=== PATIENT | male | born 1980 | race Two or more races ===

== ENCOUNTER 2022-04-11 13:10 | Emergency (ER) | payer OTHER, SELFPAY ==
[2022-04-11 13:58] VITALS: BP 130/78; PULSE 71; RESP 16; TEMP 36.7; O2SAT 99; BMI 34.7
--- NOTE | 2022-04-11 14:25 | CTR_ITS ---
PROCEDURE INFORMATION: Exam: CT Maxillofacial Without Contrast Exam date and time: 04/11/2022 2:39 PM Age: 41 years old Clinical indication: Injury or trauma; Other: Impact drill socket to forehead; Work related; Blunt trauma (contusions or hematomas) and laceration; Without residual foreign body; Additional info: Facial injury TECHNIQUE: Imaging protocol: Computed tomography images of the face without contrast. Radiation optimization: All CT scans at this facility use at least one of these dose optimization techniques: automated exposure control; mA and/or kV adjustment per patient size (includes targeted exams where dose is matched to clinical indication); or iterative reconstruction. COMPARISON: No relevant prior studies available. RADIATION DOSE METRICS: Total DLP (mGy-cm): 815.11 FINDINGS: Orbital cavities: Orbits are normal. Globes are unremarkable. Bones/joints: No acute fracture. Paranasal sinuses: Normal. No air-fluid levels. Soft tissues: Laceration and contusion in the right nasal/forehead region. CT/CT facial bones wo con* [id number] IMPRESSION: No acute findings.
--- NOTE | 2022-04-11 14:27 | ED_ITS ---
Documented by User: Payal Arellano PA-C 04/11/22 15:22 HPI - Head Injury General: Chief complaint: Head Injury Stated complaint: facial injury Time Seen by Provider: 04/11/22 14:18 Source: patient and other Mode of arrival: ambulatory Limitations: no limitations History of Present Illness: 41-year-old male presents to the ER today for head laceration and facial injury. Patient was working when equipment failed and broke, hitting him in the face. Patient reports this was a wrench that came off and hit him between the eyes. He was wearing a hard hat and safety glasses however it hit the glasses and broke the glasses. Patient reports a headache. He reports bilateral eye redness. He reports a laceration with minimal bleeding. Patient's last tetanus shot was in 2019. Patient did not lose consciousness. Review of Systems General: Reports: 10 or more systems reviewed and unremarkable except in HPI and below Physical Exam Const: COMMON NORMALS: no acute distress, average body habitus, patient oriented x3, no limitations, healthy appearing and alert HENMT: HEAD IMAGES: 1. facial laceration- 2 cm NOSE: Other nasal findings present (swelling of proximal bridge of nose) Eye: PERIORBITAL: periorbital findings abnormal (swelling from injury) CONJUNCTIVA: Yes conjunctival abnormal positive bilateral conjunctival injection diffuse Neck/C-Spine: COMMON NORMALS: full ROM and no lymphadenopathy Resp: COMMON NORMALS: normal respiratory effort, No retractions and clear to auscultation bilaterally AUSCULTATION: clear to auscultation bilaterally Cardio: COMMON NORMALS: regular rate and regular rhythm RATE: regular rate RHYTHM: regular rhythm Extremity: COMMON NORMALS: normal to inspection and full ROM Neuro: COMMON NORMALS: patient oriented x3 SENSORIUM/ORIENTATION: Yes alert Psych: COMMON NORMALS: mental status grossly normal, Normal thought process present and cooperative THOUGHT PROCESS: Normal thought process present Skin: COMMON NORMALS: no rashes or lesions noted GENERAL SKIN EXAM: no rashes or lesions noted Course ED course: 41-year-old male presents to the ER today for head laceration and injury that occurred at work today. Patient's equipment broke, hitting him in the head with a wrench. Patient reports a headache and facial laceration. He also reports swelling of the nose and right eye. Patient's tetanus shot was in 2019 so he is up-to-date with that. Given the swelling and pain in the nose and I will get a facial CT and also head CT given mechanism of injury. Vital Signs: Vital signs: Vital Signs Temperature 98.0 F 04/11/22 13:58 Pulse Rate 69 04/11/22 15:37 Respiratory Rate 16 04/11/22 15:37 Blood Pressure 120/76 04/11/22 15:37 Pulse Oximetry 99 04/11/22 15:37 MDM - Head Injury Medcial Decision Making 41-year-old male presents to the ER today for head laceration and injury that occurred at work today. Patient's equipment broke, hitting him in the head with a wrench. Patient reports a headache and facial laceration. He also reports swelling of the nose and right eye. Patient's tetanus shot was in 2019 so he is up-to-date with that. Given the swelling and pain in the nose and I will get a facial CT and also head CT given mechanism of injury. CT of the head and facial bones is normal. Patient has soft tissue swelling. Laceration was closed with skin adhesive. Wound care was discussed. Concussion protocol was discussed with patient as he likely has a concussion given the headache and mechanism of injury. Advised patient to avoid heat and exertion. Recommended brain rest. Follow-up with PCP in 7 to 10 days. Return to the ER with new or worsening symptoms. Patient verbalized understanding and is in agreement with the treatment plan. Lab Data Radiology Impressions Face CT 04/11/22 14:25 IMPRESSION: No acute findings. Head CT 04/11/22 14:32 IMPRESSION: No acute intracranial abnormality. Critical Care Time Critical Care Time: Critical Care Time: No Discharge Plan Discharge Patient Disposition: Home Clinical Impression: Closed head injury, Concussion without loss of consciousness Laceration of head Qualifiers: Encounter type: initial encounter Location of open wound of head: unspecified part of head Foreign body presence: without foreign body Qualified Code(s): S01.91XA - Laceration without foreign body of unspecified part of head, initial encounter Condition: Stable Discharge Orders: Discharge ED (Routine); Ordered 04/11/22 Ordered By: Payal Arellano Discharge Diet: Usual diet Discharge Activity: Limit activity as instructed Patient Instructions: Opioid Safety Activity Restrictions/Additional Instructions: Take Tylenol or ibuprofen for pain. Apply ice to reduce swelling. Follow concussion protocol as discussed. Avoid heat, exertion, and activities that require fine focus. Wound care as discussed. Follow-up with PCP in 10 to 14 days. Return to the ER with new or worsening symptoms. Coding Level of Care Code ED Mixing Tumbler Operator for Chg Fwd Exam Comprehensive Documented by User: Pedro Luis Alvarez DO 04/12/22 06:20 HPI - Head Injury General: Chief complaint: Head Injury Stated complaint: facial injury Time Seen by Provider: 04/11/22 14:18 Physical Exam HENMT: HEAD IMAGES: 1. facial laceration- 2 cm Course Vital Signs: Vital signs: Vital Signs Temperature 98.0 F 04/11/22 13:58 Pulse Rate 69 04/11/22 15:37 Respiratory Rate 16 04/11/22 15:37 Blood Pressure 120/76 04/11/22 15:37 Pulse Oximetry 99 04/11/22 15:37 MDM - Head Injury Medcial Decision Making 41-year-old male presents to the ER today for head laceration and injury that occurred at work today. Patient's equipment broke, hitting him in the head with a wrench. Patient reports a headache and facial laceration. He also reports swelling of the nose and right eye. Patient's tetanus shot was in 2019 so he is up-to-date with that. Given the swelling and pain in the nose and I will get a facial CT and also head CT given mechanism of injury. CT of the head and facial bones is normal. Patient has soft tissue swelling. Laceration was closed with skin adhesive. Wound care was discussed. Concussion protocol was discussed with patient as he likely has a concussion given the headache and mechanism of injury. Advised patient to avoid heat and exertion. Recommended brain rest. Follow-up with PCP in 7 to 10 days. Return to the ER with new or worsening symptoms. Patient verbalized understanding and is in agreement with the treatment plan. Chart reviewed and patient discussed with midlevel. Agree with assessment and plan. Lab Data Radiology Impressions Face CT 04/11/22 14:25 IMPRESSION: No acute findings. Head CT 04/11/22 14:32 IMPRESSION: No acute intracranial abnormality. Discharge Plan Discharge Patient Disposition: Home Clinical Impression: Closed head injury, Concussion without loss of consciousness Laceration of head Qualifiers: Encounter type: initial encounter Location of open wound of head: unspecified part of head Foreign body presence: without foreign body Qualified Code(s): S01.91XA - Laceration without foreign body of unspecified part of head, initial encounter Condition: Stable Discharge Orders: Discharge ED (Routine); Ordered 04/11/22 Ordered By: Payal Arellano Discharge Diet: Usual diet Discharge Activity: Limit activity as instructed Patient Instructions: Opioid Safety Activity Restrictions/Additional Instructions: Take Tylenol or ibuprofen for pain. Apply ice to reduce swelling. Follow concussion protocol as discussed. Avoid heat, exertion, and activities that require fine focus. Wound care as discussed. Follow-up with PCP in 10 to 14 days. Return to the ER with new or worsening symptoms. Coding Level of Care Code ED Mixing Tumbler Operator for Itzel Obando Exam Comprehensive
[2022-04-11 14:31] VITALS: BP 126/74; PULSE 68; RESP 16; O2SAT 99
--- NOTE | 2022-04-11 14:32 | CTR_ITS ---
PROCEDURE INFORMATION: Exam: CT Head Without Contrast Exam date and time: 04/11/2022 2:41 PM Age: 41 years old Clinical indication: Injury or trauma; Other: Impact drill socket to forehead; Work related; Laceration; Without loss of consciousness; Without residual foreign body; Additional info: Head/facial injury TECHNIQUE: Imaging protocol: Computed tomography of the head without contrast. Radiation optimization: All CT scans at this facility use at least one of these dose optimization techniques: automated exposure control; mA and/or kV adjustment per patient size (includes targeted exams where dose is matched to clinical indication); or iterative reconstruction. COMPARISON: CT facial bones wo con* [id number] 04/11/2022 2:39 PM RADIATION DOSE METRICS: Total DLP (mGy-cm): 819.48 FINDINGS: Brain: Normal. No hemorrhage. Unremarkable white matter. No mass effect. Cerebral ventricles: No ventriculomegaly. Paranasal sinuses: Visualized sinuses are unremarkable. No fluid levels. Mastoid air cells: Visualized mastoid air cells are well aerated. Bones/joints: Unremarkable. No acute fracture. Soft tissues: Unremarkable. CT/CT head wo con* [id number] IMPRESSION: No acute intracranial abnormality.
[2022-04-11 15:37] VITALS: BP 120/76; PULSE 69; RESP 16; O2SAT 99
== END 2022-04-11 15:38 | disposition home or self-care (01) ==
PROVIDERS: Emergency Provider Physician Assistant
DX: S06.0X0A Concussion without loss of consciousness, initial encounter (principal); S01.81XA Laceration without foreign body of other part of head, initial encounter; W20.8XXA Other cause of strike by thrown, projected or falling object, initial encounter; Y92.89 Other specified places as the place of occurrence of the external cause
CPT/HCPCS: 12011; 70450; 70486; 99283